=== PATIENT | male | born 1990 | race African-American/Black ===

== ENCOUNTER 2021-05-31 02:45 | Emergency (ER) | payer SELFPAY ==
[~2021-05-31] VITALS: Ht 170.2 cm; Wt 63.5 kg
[2021-05-31 03:03] VITALS: BP 125/79
--- NOTE | 2021-05-31 03:18 | NUR ---
Patient discharged to home in stable condition. Written and verbal after care instructions given. Patient verbalizes understanding of instruction. Pt ambulatory with a steady gait
== END 2021-05-31 03:22 | disposition home or self-care (01) ==
LOC: ER 02:49
DX: Z00.8 Encounter for other general examination (principal); F12.90 Cannabis use, unspecified, uncomplicated